=== PATIENT | male | born 1960 | race Caucasian/White ===

== ENCOUNTER 2020-05-31 14:43 | Inpatient (IN) ==
[2020-05-31] MEDS ORDERED: SODIUM CHLORIDE 0.9% 1,000 ML IV STA (16:15)
[2020-05-31 17:40] LABS: Hematocrit 34.7 VOL% (42.0-52.0); Hemoglobin 11.7 GM/DL (14.0-18.0); Immature Granulocytes % 0.6 %; Immature Granulocytes Absolute 0.03 #; Lymphocytes # 0.4 10*3/uL (1.4-4.0); Lymphocytes % 8.9 % (21.2-54.2); Mean Corpuscular HGB Conc 33.7 GM/DL (32-36); Mean Corpuscular Volume 93.8 FL (87-102); Mean Platelet Volume 9.9 FL (9.6-12.0); Monocytes % 5.1 % (1.7-12.7); Neutrophils % 85.4 % (38.7-73.9); Platelet Count 150 T/CUMM (130-400); Red Cell Distribution Width 13.9 % (9.3-17.3); White Blood Count 4.7 T/CUMM (4-12)
[2020-05-31 17:55] LABS: Lymphocytes 8 % (20-55); Platelet Estimate Adequate; Segmented Neutrophils 88 % (50-85); Total Cells Counted 100
[2020-05-31 18:02] LABS: Albumin 3.1 G/DL (3.4-5.0); Bilirubin,Total 0.7 MG/DL (0.2-1.0); Calcium 7.8 MG/DL (8.5-10.1); Ferritin 299.5 ng/ml (26-388); Osmolality,Calculated 283.5 MOS/KG (273-304)
[2020-05-31] MEDS ORDERED: SODIUM CHLORIDE 0.9% 1,000 ML IV ONE (18:23)
[2020-05-31] MEDS ORDERED: GLUCAGON 1 MG VIAL IM PRN ×2 (18:25)
[2020-05-31] MEDS ORDERED: NICOTINE 21 MG/24 HR PATCH TRANSDERM PRN (18:25)
[2020-05-31] MEDS ORDERED: ONDANSETRON 4 MG/2 ML VIAL IV PRN (18:25)
[2020-05-31] MEDS ORDERED: ALUMINUM/MAGNES/SIMETH MAX STR 30 ML UDCUP PO PRN (18:25)
[2020-05-31] MEDS ORDERED: CALCIUM CARBONATE CHEW 500 MG TABLET PO PRN (18:25)
[2020-05-31] MEDS ORDERED: SIMETHICONE CHEW 125 MG TABLET PO PRN (18:25)
[2020-05-31] MEDS ORDERED: DEXTROSE 50% 25 GM/50 ML VIAL IV PRN ×2 (18:25)
[2020-05-31] MEDS ORDERED: hydrALAZINE 20 MG/1 ML VIAL IV PRN (18:25)
[2020-05-31] MEDS ORDERED: BISACODYL 5 MG TABLET PO PRN (18:25)
[2020-05-31] MEDS ORDERED: AZITHROMYCIN INJ 500 MG in SODIUM CHLORIDE 0.9% 250 ML IV STA (18:29)
[2020-05-31] MEDS ORDERED: ALBUTEROL INHALER 18 GM INH PRN (18:45)
[2020-05-31] MEDS ORDERED: ENOXAPARIN 40 MG/0.4 ML SYRINGE SUBCUT SCH (19:00)
[2020-05-31] MEDS: ALBUTEROL INHALER 18 GM INH SCH ×2 (22:24→23:38)
[2020-05-31] MEDS: INSULIN LISPRO 100 UNIT/ML SUBCUT SCH (22:24)
[2020-05-31] MEDS: cefTRIAXone 1,000 MG in SYRINGE 1 EACH IV SCH (22:42)
[2020-05-31] MEDS: carvediloL 3.125 MG TABLET PO SCH (22:43)
[2020-05-31] MEDS: ACETAMINOPHEN 325 MG TABLET PO PRN (22:43)
[2020-05-31] MEDS: SIMVASTATIN 40 MG TABLET PO SCH (22:43)
[2020-05-31] MEDS: ZALEPLON 5 MG CAPSULE PO PRN (22:43)
[2020-05-31] MEDS: TICAGRELOR 90 MG TABLET PO SCH (22:43)
[2020-05-31] MEDS: SODIUM CHLORIDE 0.9% 1,000 ML IV SCH (22:46)
[2020-06-01 04:51] LABS: Hematocrit 34.9 VOL% (42.0-52.0); Hemoglobin 11.4 GM/DL (14.0-18.0); Immature Granulocytes % 0.4 %; Immature Granulocytes Absolute 0.02 #; Lymphocytes # 0.7 10*3/uL (1.4-4.0); Lymphocytes % 13.4 % (21.2-54.2); Mean Corpuscular HGB Conc 32.7 GM/DL (32-36); Mean Corpuscular Volume 95.9 FL (87-102); Mean Platelet Volume 9.6 FL (9.6-12.0); Monocytes % 6.2 % (1.7-12.7); Platelet Count 157 T/CUMM (130-400); Red Blood Count 3.64 MC/CUMM (3.8-5.5); Red Cell Distribution Width 13.8 % (9.3-17.3)
[2020-06-01] MEDS: ALBUTEROL INHALER 18 GM INH SCH ×8 (05:02→22:59)
[2020-06-01 05:11] LABS: Calcium 7.7 MG/DL (8.5-10.1); Osmolality,Calculated 283.4 MOS/KG (273-304)
[2020-06-01 05:13] LABS: Band Neutrophils 1 % (0-10); Hypochromasia Slight; Lymphocytes 8 % (20-55); Metamyelocytes 1 %; Segmented Neutrophils 85 % (50-85); Total Cells Counted 100
[2020-06-01 05:14] LABS: Microcytosis Slight; Ovalocytes Slight; Platelet Estimate Adequate
[2020-06-01] MEDS: INSULIN LISPRO 100 UNIT/ML SUBCUT SCH (09:15)
[2020-06-01] MEDS: ENOXAPARIN 150 MG/ML SYRINGE SUBCUT SCH ×2 (10:34→20:04)
[2020-06-01] MEDS: POTASSIUM CITRATE 10 MEQ TABLET PO SCH ×2 (10:35→20:05)
[2020-06-01] MEDS: ASPIRIN EC 81 MG TABLET PO SCH (10:35)
[2020-06-01] MEDS: TICAGRELOR 90 MG TABLET PO SCH ×2 (10:35→20:05)
[2020-06-01] MEDS: carvediloL 3.125 MG TABLET PO SCH ×2 (10:35→20:05)
[2020-06-01] MEDS: LORATADINE 10 MG TABLET PO SCH (10:36)
[2020-06-01] MEDS: amLODIPine 10 MG TABLET PO SCH (10:36)
[2020-06-01] MEDS: PANTOPRAZOLE 40 MG TABLET PO SCH (10:36)
[2020-06-01] MEDS: AZITHROMYCIN 250 MG TABLET PO SCH (10:36)
[2020-06-01] MEDS ORDERED: SODIUM CHLORIDE 0.9% 1,000 ML IV PRN (13:27)
[2020-06-01] MEDS ORDERED: REMDESIVIR 200 MG in SODIUM CHLORIDE 0.9% 210 ML IV ONE (14:00)
[2020-06-01] MEDS: cefTRIAXone 1,000 MG in SYRINGE 1 EACH IV SCH (17:41)
[2020-06-01] MEDS: ACETAMINOPHEN 325 MG TABLET PO PRN (20:05)
[2020-06-01] MEDS: ZALEPLON 5 MG CAPSULE PO PRN (20:05)
[2020-06-01] MEDS: SIMVASTATIN 40 MG TABLET PO SCH (20:05)
[2020-06-01] MEDS: SODIUM CHLORIDE 0.9% 1,000 ML IV SCH (20:14)
[2020-06-01] MEDS: ASCORBIC ACID 500 MG TABLET PO SCH (20:15)
[2020-06-02] MEDS ORDERED: busPIRone 5 MG TABLET PO ONE (01:48)
[2020-06-02] MEDS: ALBUTEROL INHALER 18 GM INH SCH ×5 (02:16→18:07)
[2020-06-02 05:57] LABS: Hematocrit 33.2 VOL% (42.0-52.0); Hemoglobin 11.2 GM/DL (14.0-18.0); Immature Granulocytes % 0.8 %; Immature Granulocytes Absolute 0.05 #; Lymphocytes # 0.6 10*3/uL (1.4-4.0); Lymphocytes % 9.5 % (21.2-54.2); Mean Corpuscular HGB Conc 33.7 GM/DL (32-36); Mean Platelet Volume 9.3 FL (9.6-12.0); Monocytes % 5.2 % (1.7-12.7); Neutrophils % 84.5 % (38.7-73.9); Platelet Count 198 T/CUMM (130-400); Red Blood Count 3.57 MC/CUMM (3.8-5.5); Red Cell Distribution Width 13.4 % (9.3-17.3); White Blood Count 6.2 T/CUMM (4-12)
[2020-06-02 06:20] LABS: Albumin 2.7 G/DL (3.4-5.0); Bilirubin,Total 1.4 MG/DL (0.2-1.0); Calcium 7.6 MG/DL (8.5-10.1); Ferritin 435.5 ng/ml (26-388); Osmolality,Calculated 278.5 MOS/KG (273-304); Total Protein 6.6 G/DL (6.4-8.3)
[2020-06-02 06:47] LABS: Band Neutrophils 2 % (0-10); Lymphocytes 10 % (20-55); Segmented Neutrophils 83 % (50-85); Total Cells Counted 100
[2020-06-02 06:48] LABS: Hypochromasia 1+; Microcytosis 1+; Ovalocytes Slight; Platelet Estimate Adequate
[2020-06-02 08:57] LABS: Sedimentation Rate-Westergren 90 MM/HR (0-20)
[2020-06-02] MEDS: REMDESIVIR 100 MG in SODIUM CHLORIDE 0.9% 100 ML IV SCH (09:45)
[2020-06-02] MEDS: ENOXAPARIN 150 MG/ML SYRINGE SUBCUT SCH ×2 (09:46→20:18)
[2020-06-02] MEDS: POTASSIUM CITRATE 10 MEQ TABLET PO SCH ×2 (09:47→20:18)
[2020-06-02] MEDS: LORATADINE 10 MG TABLET PO SCH (09:47)
[2020-06-02] MEDS: carvediloL 3.125 MG TABLET PO SCH ×2 (09:47→20:19)
[2020-06-02] MEDS: amLODIPine 10 MG TABLET PO SCH (09:47)
[2020-06-02] MEDS: CHOLECALCIFEROL 1,000 UNIT TABLET PO SCH (09:47)
[2020-06-02] MEDS: ZINC SULFATE 220 MG CAPSULE PO SCH (09:47)
[2020-06-02] MEDS: PANTOPRAZOLE 40 MG TABLET PO SCH (09:47)
[2020-06-02] MEDS: TICAGRELOR 90 MG TABLET PO SCH ×2 (09:47→20:19)
[2020-06-02] MEDS: ASPIRIN EC 81 MG TABLET PO SCH (09:47)
[2020-06-02] MEDS: AZITHROMYCIN 250 MG TABLET PO SCH (09:48)
[2020-06-02] MEDS: ASCORBIC ACID 500 MG TABLET PO SCH ×2 (09:48→20:18)
[2020-06-02] MEDS: busPIRone 5 MG TABLET PO SCH ×2 (15:48→20:19)
[2020-06-02] MEDS: ACETAMINOPHEN 325 MG TABLET PO PRN ×2 (15:48→20:19)
[2020-06-02] MEDS: cefTRIAXone 1,000 MG in SYRINGE 1 EACH IV SCH (18:07)
[2020-06-02] MEDS: guaiFENesin/DM ER 600-30 MG TABLET PO PRN (20:18)
[2020-06-02] MEDS: DOXAZOSIN 4 MG TABLET PO SCH (20:19)
[2020-06-02] MEDS: ZALEPLON 5 MG CAPSULE PO PRN (20:19)
[2020-06-02] MEDS: diphenhydrAMINE CAP 25 MG CAPSULE PO PRN (20:19)
[2020-06-03] MEDS: ALBUTEROL INHALER 18 GM INH SCH ×6 (00:30→20:15)
[2020-06-03] MEDS: diphenhydrAMINE CAP 25 MG CAPSULE PO PRN (02:25)
[2020-06-03 06:54] LABS: Basophils % 0.2 % (0.0-0.8); Eosinophils # 0.1 10*3/uL (0.0-0.87); Eosinophils % 0.8 % (0.00-10.9); Hematocrit 32.7 VOL% (42.0-52.0); Hemoglobin 11.2 GM/DL (14.0-18.0); Immature Granulocytes % 1.2 %; Immature Granulocytes Absolute 0.07 #; Lymphocytes # 0.5 10*3/uL (1.4-4.0); Lymphocytes % 8.7 % (21.2-54.2); Mean Corpuscular HGB Conc 34.3 GM/DL (32-36); Mean Corpuscular Volume 93.7 FL (87-102); Mean Platelet Volume 9.7 FL (9.6-12.0); Monocytes % 6.1 % (1.7-12.7); Platelet Count 214 T/CUMM (130-400); Red Blood Count 3.49 MC/CUMM (3.8-5.5); Red Cell Distribution Width 13.4 % (9.3-17.3); White Blood Count 5.9 T/CUMM (4-12)
[2020-06-03 07:06] LABS: Albumin 2.4 G/DL (3.4-5.0); Bilirubin,Total 1.2 MG/DL (0.2-1.0); Calcium 7.5 MG/DL (8.5-10.1); Ferritin 370.5 ng/ml (26-388); Osmolality,Calculated 284.3 MOS/KG (273-304); Total Protein 6.3 G/DL (6.4-8.3)
[2020-06-03 07:07] LABS: Risk Ratio 1.74; VLDL CHOLESTEROL 17.2 MG/DL
[2020-06-03 08:07] LABS: Sedimentation Rate-Westergren 98 MM/HR (0-20)
[2020-06-03 08:16] LABS: Anisocytosis 1+; Band Neutrophils 5 % (0-10); Burr Cells Few; Eosinophils 1 % (0-10); Lymphocytes 6 % (20-55); Macrocytosis Slight; Myelocytes 1 %; Ovalocytes Few; Platelet Estimate Normal; Segmented Neutrophils 77 % (50-85); Total Cells Counted 100
[2020-06-03] MEDS: carvediloL 3.125 MG TABLET PO SCH ×2 (09:40→20:17)
[2020-06-03] MEDS: LORATADINE 10 MG TABLET PO SCH (09:40)
[2020-06-03] MEDS: ASPIRIN EC 81 MG TABLET PO SCH (09:40)
[2020-06-03] MEDS: OMEGA 3 ACID ETHYL ESTERS 1 GM CAPSULE PO SCH (09:40)
[2020-06-03] MEDS: AZITHROMYCIN 250 MG TABLET PO SCH (09:40)
[2020-06-03] MEDS: CHOLECALCIFEROL 1,000 UNIT TABLET PO SCH (09:40)
[2020-06-03] MEDS: ZINC SULFATE 220 MG CAPSULE PO SCH (09:40)
[2020-06-03] MEDS: ASCORBIC ACID 500 MG TABLET PO SCH ×2 (09:40→20:17)
[2020-06-03] MEDS: DOXAZOSIN 4 MG TABLET PO SCH ×2 (09:40→20:17)
[2020-06-03] MEDS: ENOXAPARIN 150 MG/ML SYRINGE SUBCUT SCH (09:40)
[2020-06-03] MEDS: POTASSIUM CITRATE 10 MEQ TABLET PO SCH ×2 (09:40→20:16)
[2020-06-03] MEDS: TICAGRELOR 90 MG TABLET PO SCH ×2 (09:40→20:17)
[2020-06-03] MEDS: busPIRone 5 MG TABLET PO SCH ×3 (09:40→20:17)
[2020-06-03] MEDS: amLODIPine 10 MG TABLET PO SCH (09:40)
[2020-06-03] MEDS: PANTOPRAZOLE 40 MG TABLET PO SCH (09:40)
[2020-06-03] MEDS: REMDESIVIR 100 MG in SODIUM CHLORIDE 0.9% 100 ML IV SCH (10:22)
[2020-06-03] MEDS: cefTRIAXone 1,000 MG in SYRINGE 1 EACH IV SCH (18:06)
[2020-06-03] MEDS: ZALEPLON 5 MG CAPSULE PO PRN (20:17)
[2020-06-03] MEDS: guaiFENesin/DM ER 600-30 MG TABLET PO PRN (20:17)
[2020-06-04] MEDS: ACETAMINOPHEN 325 MG TABLET PO PRN ×2 (01:40→17:35)
[2020-06-04] MEDS: ALBUTEROL INHALER 18 GM INH SCH ×7 (01:40→22:00)
[2020-06-04] MEDS: ENOXAPARIN 150 MG/ML SYRINGE SUBCUT SCH ×2 (02:00→14:30)
[2020-06-04 05:23] LABS: Basophils % 0.1 % (0.0-0.8); Eosinophils # 0.1 10*3/uL (0.0-0.87); Eosinophils % 1.4 % (0.00-10.9); Hematocrit 32.6 VOL% (42.0-52.0); Hemoglobin 10.8 GM/DL (14.0-18.0); Immature Granulocytes % 1.2 %; Lymphocytes # 0.5 10*3/uL (1.4-4.0); Lymphocytes % 5.9 % (21.2-54.2); Mean Corpuscular HGB Conc 33.1 GM/DL (32-36); Mean Corpuscular Volume 94.2 FL (87-102); Mean Platelet Volume 9.2 FL (9.6-12.0); Monocytes % 4.2 % (1.7-12.7); Neutrophils % 87.2 % (38.7-73.9); Platelet Count 230 T/CUMM (130-400); Red Blood Count 3.46 MC/CUMM (3.8-5.5); Red Cell Distribution Width 13.6 % (9.3-17.3); White Blood Count 8.6 T/CUMM (4-12)
[2020-06-04 06:06] LABS: Albumin 2.5 G/DL (3.4-5.0); Bilirubin,Total 0.9 MG/DL (0.2-1.0); Calcium 7.8 MG/DL (8.5-10.1); Ferritin 353.4 ng/ml (26-388); Osmolality,Calculated 284.1 MOS/KG (273-304); Total Protein 6.7 G/DL (6.4-8.3)
[2020-06-04 06:35] LABS: Sedimentation Rate-Westergren 110 MM/HR (0-20)
[2020-06-04] MEDS: ASPIRIN EC 81 MG TABLET PO SCH (10:20)
[2020-06-04] MEDS: ASCORBIC ACID 500 MG TABLET PO SCH ×2 (10:20→21:39)
[2020-06-04] MEDS: DOXAZOSIN 4 MG TABLET PO SCH ×2 (10:20→21:39)
[2020-06-04] MEDS: OMEGA 3 ACID ETHYL ESTERS 1 GM CAPSULE PO SCH (10:20)
[2020-06-04] MEDS: PANTOPRAZOLE 40 MG TABLET PO SCH (10:20)
[2020-06-04] MEDS: amLODIPine 10 MG TABLET PO SCH (10:20)
[2020-06-04] MEDS: LORATADINE 10 MG TABLET PO SCH (10:20)
[2020-06-04] MEDS: ZINC SULFATE 220 MG CAPSULE PO SCH (10:20)
[2020-06-04] MEDS: POTASSIUM CITRATE 10 MEQ TABLET PO SCH ×2 (10:20→21:39)
[2020-06-04] MEDS: busPIRone 5 MG TABLET PO SCH ×2 (10:20→21:40)
[2020-06-04] MEDS: TICAGRELOR 90 MG TABLET PO SCH ×2 (10:20→21:39)
[2020-06-04] MEDS: carvediloL 3.125 MG TABLET PO SCH ×2 (10:20→21:39)
[2020-06-04] MEDS: AZITHROMYCIN 250 MG TABLET PO SCH (10:20)
[2020-06-04] MEDS: CHOLECALCIFEROL 1,000 UNIT TABLET PO SCH (10:20)
[2020-06-04] MEDS: REMDESIVIR 100 MG in SODIUM CHLORIDE 0.9% 100 ML IV SCH (10:20)
[2020-06-04] MEDS: cefTRIAXone 1,000 MG in SYRINGE 1 EACH IV SCH (17:35)
[2020-06-04] MEDS: ZALEPLON 5 MG CAPSULE PO PRN (21:40)
[2020-06-04] MEDS: guaiFENesin/DM ER 600-30 MG TABLET PO PRN (21:40)
[2020-06-05] MEDS: ACETAMINOPHEN 325 MG TABLET PO PRN ×2 (01:00→20:28)
[2020-06-05] MEDS: ENOXAPARIN 150 MG/ML SYRINGE SUBCUT SCH ×2 (01:00→15:00)
[2020-06-05] MEDS: ALBUTEROL INHALER 18 GM INH SCH ×5 (02:10→20:27)
[2020-06-05 06:37] LABS: Basophils % 0.1 % (0.0-0.8); Eosinophils # 0.1 10*3/uL (0.0-0.87); Eosinophils % 1.6 % (0.00-10.9); Hematocrit 32.9 VOL% (42.0-52.0); Hemoglobin 10.9 GM/DL (14.0-18.0); Immature Granulocytes Absolute 0.09 #; Lymphocytes # 0.4 10*3/uL (1.4-4.0); Lymphocytes % 4.6 % (21.2-54.2); Mean Corpuscular HGB Conc 33.1 GM/DL (32-36); Mean Corpuscular Volume 94.8 FL (87-102); Mean Platelet Volume 9.6 FL (9.6-12.0); Monocytes % 2.6 % (1.7-12.7); Neutrophils % 90.1 % (38.7-73.9); Platelet Count 264 T/CUMM (130-400); Red Blood Count 3.47 MC/CUMM (3.8-5.5); Red Cell Distribution Width 13.5 % (9.3-17.3)
[2020-06-05 07:09] LABS: Albumin 2.3 G/DL (3.4-5.0); Bilirubin,Total 1.6 MG/DL (0.2-1.0); Calcium 7.9 MG/DL (8.5-10.1); Ferritin 385.7 ng/ml (26-388); Osmolality,Calculated 281.4 MOS/KG (273-304); Total Protein 6.6 G/DL (6.4-8.3)
[2020-06-05 08:07] LABS: Sedimentation Rate-Westergren 107 MM/HR (0-20)
[2020-06-05 09:15] LABS: Band Neutrophils 9 % (0-10); Eosinophils 4 % (0-10); Lymphocytes 2 % (20-55); Platelet Estimate Normal; Segmented Neutrophils 83 % (50-85); Total Cells Counted 100
[2020-06-05 09:16] LABS: Burr Cells Few; Tear Drop Cells Few
[2020-06-05] MEDS: busPIRone 5 MG TABLET PO SCH ×2 (09:40→20:26)
[2020-06-05] MEDS: PANTOPRAZOLE 40 MG TABLET PO SCH (09:40)
[2020-06-05] MEDS: TICAGRELOR 90 MG TABLET PO SCH ×2 (09:40→20:27)
[2020-06-05] MEDS: ZINC SULFATE 220 MG CAPSULE PO SCH (09:40)
[2020-06-05] MEDS: OMEGA 3 ACID ETHYL ESTERS 1 GM CAPSULE PO SCH (09:40)
[2020-06-05] MEDS: ASPIRIN EC 81 MG TABLET PO SCH (09:40)
[2020-06-05] MEDS: carvediloL 3.125 MG TABLET PO SCH ×2 (09:40→20:27)
[2020-06-05] MEDS: POTASSIUM CITRATE 10 MEQ TABLET PO SCH ×2 (09:40→20:27)
[2020-06-05] MEDS: ASCORBIC ACID 500 MG TABLET PO SCH ×2 (09:40→20:27)
[2020-06-05] MEDS: amLODIPine 10 MG TABLET PO SCH (09:40)
[2020-06-05] MEDS: DOXAZOSIN 4 MG TABLET PO SCH ×2 (09:40→20:26)
[2020-06-05] MEDS: LORATADINE 10 MG TABLET PO SCH (09:40)
[2020-06-05] MEDS: CHOLECALCIFEROL 1,000 UNIT TABLET PO SCH (09:40)
[2020-06-05] MEDS: REMDESIVIR 100 MG in SODIUM CHLORIDE 0.9% 100 ML IV SCH (10:28)
[2020-06-05] MEDS: cefTRIAXone 1,000 MG in SYRINGE 1 EACH IV SCH (17:44)
[2020-06-05] MEDS: ZALEPLON 5 MG CAPSULE PO PRN (20:26)
[2020-06-06] MEDS: ALBUTEROL INHALER 18 GM INH SCH ×7 (00:03→23:52)
[2020-06-06] MEDS: ENOXAPARIN 150 MG/ML SYRINGE SUBCUT SCH ×2 (02:50→14:02)
[2020-06-06] MEDS ORDERED: SODIUM BICARBONATE 50 MEQ/50 ML SYRINGE IV ONE (05:31)
[2020-06-06] MEDS ORDERED: EPINEPHrine 1 MG/10 ML SYRINGE ONE (05:31)
[2020-06-06] MEDS ORDERED: ETOMIDATE 20 MG/10 ML VIAL IV ONE ×2 (05:46→07:08)
[2020-06-06] MEDS ORDERED: ROCURONIUM 100 MG/10 ML VIAL IV ONE ×2 (05:46→07:08)
[2020-06-06] MEDS ORDERED: CALCIUM CHLORIDE 1,000 MG/10 ML SYRINGE IV ONE (05:55)
[2020-06-06] MEDS ORDERED: SODIUM BICARBONATE 50 MEQ/50 ML VIAL IV ONE (05:56)
[2020-06-06 06:02] LABS: Basophils % 0.1 % (0.0-0.8); Eosinophils # 0.1 10*3/uL (0.0-0.87); Hematocrit 30.1 VOL% (42.0-52.0); Hemoglobin 9.8 GM/DL (14.0-18.0); Immature Granulocytes % 1.8 %; Immature Granulocytes Absolute 0.23 #; Lymphocytes # 1.3 10*3/uL (1.4-4.0); Lymphocytes % 9.7 % (21.2-54.2); Mean Corpuscular HGB Conc 32.6 GM/DL (32-36); Mean Corpuscular Volume 96.8 FL (87-102); Monocytes % 2.6 % (1.7-12.7); Neutrophils % 84.8 % (38.7-73.9); Platelet Count 317 T/CUMM (130-400); Red Blood Count 3.11 MC/CUMM (3.8-5.5); Red Cell Distribution Width 13.7 % (9.3-17.3); White Blood Count 12.9 T/CUMM (4-12)
[2020-06-06] MEDS ORDERED: FUROSEMIDE 100 MG/10 ML VIAL ONE (06:20)
[2020-06-06] MEDS ORDERED: MIDAZOLAM 10 MG/2 ML VIAL ONE (06:33)
[2020-06-06 06:35] LABS: Albumin 2.1 G/DL (3.4-5.0); Bilirubin,Total 0.6 MG/DL (0.2-1.0); Calcium 7.7 MG/DL (8.5-10.1); Ferritin 449.6 ng/ml (26-388); Osmolality,Calculated 292.4 MOS/KG (273-304); Total Protein 6.2 G/DL (6.4-8.3)
[2020-06-06] MEDS ORDERED: DEXMEDETOMIDINE 200 MCG in SODIUM CHLORIDE 0.9% 48 ML IV PRN (06:40)
[2020-06-06 06:59] LABS: ABG HCO3 23.6 MMOL/L (20-26); ABG PCO2 61.4 MM HG (35-48); ABG TCO2 25.5 MMOL/L (23-27)
[2020-06-06 07:00] LABS: ABG Base Excess -4.8 MMOL/L (-2.5-2.5); ABG Oxygen Saturation 44.3 % (95-100); ABG PH 7.203 (7.35-7.45)
[2020-06-06 07:01] LABS: ABG PO2 36.9 MM HG (80-95)
[2020-06-06] MEDS ORDERED: FUROSEMIDE 40 MG/4 ML VIAL IV ONE (07:08)
[2020-06-06] MEDS ORDERED: MIDAZOLAM 2 MG/2 ML VIAL IV ONE (07:08)
[2020-06-06] MEDS ORDERED: LACTATED RINGERS 1,000 ML IV ONE (07:25)
[2020-06-06 07:51] LABS: ABG Base Excess 1.1 MMOL/L (-2.5-2.5); ABG HCO3 24.9 MMOL/L (20-26); ABG Oxygen Saturation 68.3 % (95-100); ABG PCO2 44.5 MM HG (35-48); ABG PH 7.381 (7.35-7.45); ABG TCO2 24.4 MMOL/L (23-27)
[2020-06-06 07:53] LABS: ABG PO2 40.1 MM HG (80-95)
[2020-06-06 08:17] LABS: Amorphous Crystals,Urine Few /HPF (Few); Bacteria,Urine Occasional /HPF (Few); Bilirubin,Urine Negative (Negative); Blood, Urine Small mg/dL (Negative); Glucose,Urine (UA) 50 mg/dL (Negative); Hyaline Casts,Urine 3 /LPF (0-3); Ketones,Urine Negative (Negative); Mucus,Urine Occasional /LPF (Occasional); Nitrite,Urine Negative (Negative); Protein,Urine 30 MG/DL; RBC,Urine 8 /HPF (0-4); Squamous Epithelial Cell,Urine Occasional /HPF (0-10); Urine Appearance Slightly Hazy (Clear); Urine Color Yellow (Yellow); Urine Specific Gravity 1.011 (1.001-1.035); Urine Urobilinogen < 2.0 EU/DL (0.2-1.0)
[2020-06-06] MEDS: ROCURONIUM 500 MG in SODIUM CHLORIDE 0.9% 500 ML IV PRN ×3 (08:30→23:53)
[2020-06-06] MEDS: MIDAZOLAM 100 MG in SODIUM CHLORIDE 0.9% 80 ML IV PRN ×2 (08:30→22:30)
[2020-06-06] MEDS: fentaNYL INJ 1,250 MCG in SODIUM CHLORIDE 0.9% 225 ML IV PRN ×4 (08:30→23:52)
[2020-06-06 09:22] LABS: Sedimentation Rate-Westergren 110 MM/HR (0-20)
[2020-06-06] MEDS: LACTATED RINGERS 1,000 ML IV SCH ×3 (09:31→17:32)
[2020-06-06] MEDS: POTASSIUM CITRATE 10 MEQ TABLET PO SCH ×2 (10:13→20:54)
[2020-06-06] MEDS: busPIRone 5 MG TABLET PO SCH ×2 (10:14→20:54)
[2020-06-06] MEDS: carvediloL 3.125 MG TABLET PO SCH ×2 (10:14→20:56)
[2020-06-06] MEDS: TICAGRELOR 90 MG TABLET PO SCH ×2 (10:14→20:54)
[2020-06-06] MEDS: OMEGA 3 ACID ETHYL ESTERS 1 GM CAPSULE PO SCH (10:14)
[2020-06-06] MEDS: ACETAMINOPHEN 325 MG TABLET PO PRN ×2 (10:15→14:03)
[2020-06-06] MEDS: ASPIRIN EC 81 MG TABLET PO SCH (10:16)
[2020-06-06] MEDS: CHOLECALCIFEROL 1,000 UNIT TABLET PO SCH (10:16)
[2020-06-06] MEDS: amLODIPine 10 MG TABLET PO SCH (10:17)
[2020-06-06] MEDS: DOXAZOSIN 4 MG TABLET PO SCH ×2 (10:17→20:56)
[2020-06-06] MEDS: ASCORBIC ACID 500 MG TABLET PO SCH ×2 (10:17→20:54)
[2020-06-06] MEDS: ZINC SULFATE 220 MG CAPSULE PO SCH (10:17)
[2020-06-06] MEDS: LORATADINE 10 MG TABLET PO SCH (10:17)
[2020-06-06] MEDS: PANTOPRAZOLE 40 MG VIAL IV SCH (10:18)
[2020-06-06] MEDS: PANTOPRAZOLE 40 MG TABLET PO SCH (10:56)
[2020-06-06 11:21] LABS: ABG Base Excess 2.3 MMOL/L (-2.5-2.5); ABG HCO3 26.1 MMOL/L (20-26); ABG Oxygen Saturation 79.3 % (95-100); ABG PCO2 59.1 MM HG (35-48); ABG PH 7.313 (7.35-7.45); ABG PO2 51.9 MM HG (80-95); ABG TCO2 27.1 MMOL/L (23-27)
[2020-06-06] MEDS: NOREPINEPHRINE 8 MG in SODIUM CHLORIDE 0.9% 234 ML IV PRN ×2 (15:45→22:35)
[2020-06-06] MEDS ORDERED: LACTATED RINGERS 500 ML IV ONE (15:45)
[2020-06-06] MEDS: INSULIN LISPRO 100 UNIT/ML SUBCUT SCH (17:35)
[2020-06-06] MEDS: cefTRIAXone 1,000 MG in SYRINGE 1 EACH IV SCH (18:39)
[2020-06-06] MEDS: INSULIN GLARGINE 100 UNIT/ML SUBCUT SCH (20:55)
[2020-06-06] MEDS ORDERED: DEXTROSE IV SCH (21:00)
[2020-06-07] MEDS: INSULIN LISPRO 100 UNIT/ML SUBCUT SCH ×4 (00:30→17:48)
[2020-06-07] MEDS: ENOXAPARIN 150 MG/ML SYRINGE SUBCUT SCH ×2 (02:11→09:36)
[2020-06-07] MEDS: ALBUTEROL INHALER 18 GM INH SCH ×6 (02:12→23:45)
[2020-06-07] MEDS: ACETAMINOPHEN 325 MG TABLET PO PRN ×3 (02:14→18:36)
[2020-06-07] MEDS: LACTATED RINGERS 1,000 ML IV SCH ×2 (02:45→14:35)
[2020-06-07] MEDS: fentaNYL INJ 1,250 MCG in SODIUM CHLORIDE 0.9% 225 ML IV PRN (04:20)
[2020-06-07] MEDS: fentaNYL INJ 2,500 MCG in SODIUM CHLORIDE 0.9% 450 ML IV PRN ×3 (04:23→21:52)
[2020-06-07 05:11] LABS: ABG Base Excess 1.5 MMOL/L (-2.5-2.5); ABG HCO3 28.6 MMOL/L (20-26); ABG Oxygen Saturation 97.9 % (95-100); ABG PCO2 59.4 MM HG (35-48); ABG PH 7.301 (7.35-7.45); ABG PO2 123.1 MM HG (80-95); ABG TCO2 30.5 MMOL/L (23-27)
[2020-06-07 05:13] LABS: Basophils % 0.2 % (0.0-0.8); Eosinophils # 0.2 10*3/uL (0.0-0.87); Eosinophils % 3.7 % (0.00-10.9); Hematocrit 26.9 VOL% (42.0-52.0); Hemoglobin 8.6 GM/DL (14.0-18.0); Immature Granulocytes % 1.1 %; Immature Granulocytes Absolute 0.07 #; Lymphocytes # 0.3 10*3/uL (1.4-4.0); Lymphocytes % 5.1 % (21.2-54.2); Mean Corpuscular Volume 98.9 FL (87-102); Mean Platelet Volume 9.4 FL (9.6-12.0); Monocytes % 2.6 % (1.7-12.7); Neutrophils % 87.3 % (38.7-73.9); Platelet Count 285 T/CUMM (130-400); Red Blood Count 2.72 MC/CUMM (3.8-5.5); Red Cell Distribution Width 14.4 % (9.3-17.3); White Blood Count 6.4 T/CUMM (4-12)
[2020-06-07] MEDS: NOREPINEPHRINE 8 MG in SODIUM CHLORIDE 0.9% 234 ML IV PRN ×3 (05:20→19:27)
[2020-06-07 05:31] LABS: Albumin 1.8 G/DL (3.4-5.0); Bilirubin,Total 0.6 MG/DL (0.2-1.0); Calcium 7.4 MG/DL (8.5-10.1); Ferritin 407.8 ng/ml (26-388); Osmolality,Calculated 296.4 MOS/KG (273-304); Total Protein 5.8 G/DL (6.4-8.3)
[2020-06-07] MEDS: ROCURONIUM 500 MG in SODIUM CHLORIDE 0.9% 500 ML IV PRN ×3 (06:48→20:58)
[2020-06-07 08:07] LABS: Segmented Neutrophils 86 % (50-85); Total Cells Counted 100
[2020-06-07 08:08] LABS: Band Neutrophils 3 % (0-10); Eosinophils 3 % (0-10); Hypochromasia Slight; Lymphocytes 4 % (20-55); Ovalocytes Few; Platelet Estimate Normal
[2020-06-07] MEDS: TICAGRELOR 90 MG TABLET PO SCH ×2 (09:35→20:36)
[2020-06-07] MEDS: busPIRone 5 MG TABLET PO SCH ×2 (09:35→20:36)
[2020-06-07] MEDS: ASPIRIN CHEW 81 MG TABLET PO SCH (09:35)
[2020-06-07] MEDS: LORATADINE 10 MG TABLET PO SCH (09:35)
[2020-06-07] MEDS: DOXAZOSIN 4 MG TABLET PO SCH ×2 (09:35→20:39)
[2020-06-07] MEDS: OMEGA 3 ACID ETHYL ESTERS 1 GM CAPSULE PO SCH (09:36)
[2020-06-07] MEDS: INSULIN GLARGINE 100 UNIT/ML SUBCUT SCH ×2 (09:36→20:37)
[2020-06-07] MEDS: carvediloL 3.125 MG TABLET PO SCH ×2 (09:36→20:36)
[2020-06-07] MEDS: amLODIPine 10 MG TABLET PO SCH (09:36)
[2020-06-07] MEDS: CHOLECALCIFEROL 1,000 UNIT TABLET PO SCH (09:37)
[2020-06-07] MEDS: ZINC SULFATE 220 MG CAPSULE PO SCH (09:37)
[2020-06-07] MEDS: PANTOPRAZOLE 40 MG VIAL IV SCH (09:37)
[2020-06-07] MEDS: ASCORBIC ACID 500 MG TABLET PO SCH ×2 (09:37→20:36)
[2020-06-07] MEDS: POTASSIUM CITRATE 10 MEQ TABLET PO SCH ×2 (09:37→20:36)
[2020-06-07] MEDS: MIDAZOLAM 100 MG in SODIUM CHLORIDE 0.9% 80 ML IV PRN (13:50)
[2020-06-07] MEDS: cefTRIAXone 1,000 MG in SYRINGE 1 EACH IV SCH (17:42)
[2020-06-08] MEDS: INSULIN LISPRO 100 UNIT/ML SUBCUT SCH ×4 (00:26→18:28)
[2020-06-08] MEDS: LACTATED RINGERS 1,000 ML IV SCH (00:35)
[2020-06-08] MEDS: NOREPINEPHRINE 8 MG in SODIUM CHLORIDE 0.9% 234 ML IV PRN ×4 (02:10→23:12)
[2020-06-08] MEDS: ALBUTEROL INHALER 18 GM INH SCH ×6 (03:15→22:43)
[2020-06-08] MEDS: ROCURONIUM 500 MG in SODIUM CHLORIDE 0.9% 500 ML IV PRN ×3 (04:55→23:43)
[2020-06-08 05:19] LABS: Basophils % 0.2 % (0.0-0.8); Eosinophils # 0.2 10*3/uL (0.0-0.87); Eosinophils % 3.1 % (0.00-10.9); Hematocrit 27.5 VOL% (42.0-52.0); Hemoglobin 8.4 GM/DL (14.0-18.0); Immature Granulocytes % 0.5 %; Immature Granulocytes Absolute 0.03 #; Lymphocytes # 0.3 10*3/uL (1.4-4.0); Lymphocytes % 4.4 % (21.2-54.2); Mean Corpuscular HGB Conc 30.5 GM/DL (32-36); Mean Corpuscular Volume 102.2 FL (87-102); Mean Platelet Volume 9.7 FL (9.6-12.0); Monocytes % 4.1 % (1.7-12.7); Neutrophils % 87.7 % (38.7-73.9); Platelet Count 268 T/CUMM (130-400); Red Blood Count 2.69 MC/CUMM (3.8-5.5); Red Cell Distribution Width 14.5 % (9.3-17.3); White Blood Count 6.4 T/CUMM (4-12)
[2020-06-08 05:20] LABS: ABG Base Excess -2.2 MMOL/L (-2.5-2.5); ABG HCO3 25.2 MMOL/L (20-26); ABG Oxygen Saturation 98.5 % (95-100); ABG PCO2 56.8 MM HG (35-48); ABG PH 7.265 (7.35-7.45); ABG PO2 157.1 MM HG (80-95); ABG TCO2 26.9 MMOL/L (23-27)
[2020-06-08 05:58] LABS: Anisocytosis 1+; Band Neutrophils 22 % (0-10); Eosinophils 1 % (0-10); Lymphocytes 3 % (20-55); Ovalocytes Few; Platelet Estimate Normal; Segmented Neutrophils 69 % (50-85); Total Cells Counted 100
[2020-06-08 05:59] LABS: Macrocytosis Slight
[2020-06-08 06:01] LABS: Ferritin 324.4 ng/ml (26-388)
[2020-06-08] MEDS: fentaNYL INJ 2,500 MCG in SODIUM CHLORIDE 0.9% 450 ML IV PRN ×3 (06:14→23:12)
[2020-06-08] MEDS ORDERED: SODIUM POLYSTYRENE SULFATE 15 GM/60 ML BOTTLE PO ONE (06:19)
[2020-06-08] MEDS: MIDAZOLAM 100 MG in SODIUM CHLORIDE 0.9% 80 ML IV PRN ×2 (06:28→23:42)
[2020-06-08] MEDS ORDERED: NOREPINEPHRINE 4 MG/4 ML VIAL IV ONE (08:39)
[2020-06-08] MEDS ORDERED: EPINEPHrine 1 MG/ML VIAL ONE (08:41)
[2020-06-08] MEDS ORDERED: SODIUM BICARBONATE 50 MEQ/50 ML VIAL IV ONE (08:45)
[2020-06-08] MEDS ORDERED: CALCIUM GLUCONATE 1,000 MG/10 ML VIAL IV ONE (08:45)
[2020-06-08 09:00] LABS: ABG Base Excess -3.1 MMOL/L (-2.5-2.5); ABG HCO3 21.1 MMOL/L (20-26); ABG Oxygen Saturation 43.3 % (95-100); ABG PCO2 63.7 MM HG (35-48); ABG TCO2 24.5 MMOL/L (23-27)
[2020-06-08] MEDS ORDERED: CALCIUM CHLORIDE 1,000 MG/10 ML SYRINGE IV ONE (09:49)
[2020-06-08] MEDS: POTASSIUM CITRATE 10 MEQ TABLET PO SCH (10:28)
[2020-06-08] MEDS: ASPIRIN CHEW 81 MG TABLET PO SCH (11:25)
[2020-06-08] MEDS: busPIRone 5 MG TABLET PO SCH ×2 (11:26→20:07)
[2020-06-08] MEDS: TICAGRELOR 90 MG TABLET PO SCH ×2 (11:26→20:07)
[2020-06-08] MEDS: LORATADINE 10 MG TABLET PO SCH (11:27)
[2020-06-08] MEDS: INSULIN GLARGINE 100 UNIT/ML SUBCUT SCH ×2 (11:27→20:07)
[2020-06-08] MEDS: DOXAZOSIN 4 MG TABLET PO SCH ×2 (11:27→20:07)
[2020-06-08] MEDS: carvediloL 3.125 MG TABLET PO SCH ×2 (11:27→20:07)
[2020-06-08] MEDS: PANTOPRAZOLE 40 MG VIAL IV SCH (11:28)
[2020-06-08] MEDS: CHOLECALCIFEROL 1,000 UNIT TABLET PO SCH (11:28)
[2020-06-08] MEDS: ZINC SULFATE 220 MG CAPSULE PO SCH (11:28)
[2020-06-08] MEDS: amLODIPine 10 MG TABLET PO SCH (11:28)
[2020-06-08] MEDS: ENOXAPARIN 150 MG/ML SYRINGE SUBCUT SCH (11:28)
[2020-06-08] MEDS: ASCORBIC ACID 500 MG TABLET PO SCH ×2 (11:28→20:06)
[2020-06-08] MEDS: OMEGA 3 ACID ETHYL ESTERS 1 GM CAPSULE PO SCH (11:28)
[2020-06-08] MEDS: SODIUM BICARB INJ 100 MEQ in STERILE WATER INJ 1,000 ML IV SCH ×2 (12:03→22:39)
[2020-06-08 16:55] LABS: ABG Base Excess -1.8 MMOL/L (-2.5-2.5); ABG HCO3 22.9 MMOL/L (20-26); ABG Oxygen Saturation 98.8 % (95-100); ABG PCO2 50.3 MM HG (35-48); ABG PH 7.303 (7.35-7.45); ABG TCO2 23.1 MMOL/L (23-27)
[2020-06-08 17:24] LABS: Osmolality,Calculated 317.8 MOS/KG (273-304)
[2020-06-08] MEDS: cefTRIAXone 1,000 MG in SYRINGE 1 EACH IV SCH (18:27)
[2020-06-08] MEDS: FLUCONAZOLE INJ 100 MG in IV BAG 1 EACH IV SCH (18:27)
[2020-06-09] MEDS: INSULIN LISPRO 100 UNIT/ML SUBCUT SCH ×4 (00:12→17:35)
[2020-06-09] MEDS: ALBUTEROL INHALER 18 GM INH SCH ×5 (02:27→19:30)
[2020-06-09 04:50] LABS: Basophils % 0.1 % (0.0-0.8); Eosinophils # 0.2 10*3/uL (0.0-0.87); Eosinophils % 2.7 % (0.00-10.9); Hematocrit 27.6 VOL% (42.0-52.0); Hemoglobin 8.7 GM/DL (14.0-18.0); Immature Granulocytes % 0.7 %; Immature Granulocytes Absolute 0.06 #; Lymphocytes # 0.3 10*3/uL (1.4-4.0); Mean Corpuscular HGB Conc 31.5 GM/DL (32-36); Mean Corpuscular Volume 99.6 FL (87-102); Mean Platelet Volume 9.5 FL (9.6-12.0); Monocytes % 3.2 % (1.7-12.7); Neutrophils % 90.3 % (38.7-73.9); Platelet Count 314 T/CUMM (130-400); Red Blood Count 2.77 MC/CUMM (3.8-5.5); Red Cell Distribution Width 14.6 % (9.3-17.3); White Blood Count 8.9 T/CUMM (4-12)
[2020-06-09 04:59] LABS: ABG Base Excess -0.4 MMOL/L (-2.5-2.5); ABG Oxygen Saturation 97.7 % (95-100); ABG PCO2 52.3 MM HG (35-48); ABG PH 7.315 (7.35-7.45); ABG PO2 119.4 MM HG (80-95); ABG TCO2 27.6 MMOL/L (23-27)
[2020-06-09 05:18] LABS: Band Neutrophils 2 % (0-10); Eosinophils 2 % (0-10); Hypochromasia Slight; Lymphocytes 3 % (20-55); Platelet Estimate Normal; Segmented Neutrophils 91 % (50-85); Total Cells Counted 100
[2020-06-09 05:26] LABS: Calcium 6.9 MG/DL (8.5-10.1)
[2020-06-09] MEDS: ROCURONIUM 500 MG in SODIUM CHLORIDE 0.9% 500 ML IV PRN (05:55)
[2020-06-09] MEDS: ACETAMINOPHEN 325 MG TABLET PO PRN ×2 (06:53→16:07)
[2020-06-09] MEDS: NOREPINEPHRINE 8 MG in SODIUM CHLORIDE 0.9% 234 ML IV PRN ×2 (07:16→16:01)
[2020-06-09] MEDS: fentaNYL INJ 2,500 MCG in SODIUM CHLORIDE 0.9% 450 ML IV PRN ×2 (07:31→21:10)
[2020-06-09] MEDS: INSULIN GLARGINE 100 UNIT/ML SUBCUT SCH ×2 (08:16→20:20)
[2020-06-09] MEDS: CHOLECALCIFEROL 1,000 UNIT TABLET PO SCH (08:17)
[2020-06-09] MEDS: ASPIRIN CHEW 81 MG TABLET PO SCH (08:17)
[2020-06-09] MEDS: ASCORBIC ACID 500 MG TABLET PO SCH ×2 (08:17→20:20)
[2020-06-09] MEDS: ZINC SULFATE 220 MG CAPSULE PO SCH (08:18)
[2020-06-09] MEDS: OMEGA 3 ACID ETHYL ESTERS 1 GM CAPSULE PO SCH (08:18)
[2020-06-09] MEDS: TICAGRELOR 90 MG TABLET PO SCH ×2 (08:18→20:20)
[2020-06-09] MEDS: busPIRone 5 MG TABLET PO SCH ×2 (08:18→20:20)
[2020-06-09] MEDS: ENOXAPARIN 150 MG/ML SYRINGE SUBCUT SCH (08:19)
[2020-06-09] MEDS: LORATADINE 10 MG TABLET PO SCH (08:19)
[2020-06-09] MEDS: SODIUM BICARB INJ 100 MEQ in STERILE WATER INJ 1,000 ML IV SCH ×2 (08:22→19:22)
[2020-06-09] MEDS: PANTOPRAZOLE 40 MG VIAL IV SCH (08:24)
[2020-06-09] MEDS ORDERED: CALCIUM GLUCONATE 1,000 MG in SODIUM CHLORIDE 0.9% 100 ML IV ONE (09:00)
[2020-06-09] MEDS: ALBUMIN 25% 25 GM in PREMIX 1 EACH IV SCH ×2 (09:38→17:19)
[2020-06-09] MEDS: FUROSEMIDE 40 MG/4 ML VIAL IV SCH (10:27)
[2020-06-09] MEDS: MIDAZOLAM 100 MG in SODIUM CHLORIDE 0.9% 80 ML IV PRN (17:22)
[2020-06-09] MEDS: cefTRIAXone 1,000 MG in SYRINGE 1 EACH IV SCH (17:57)
[2020-06-09] MEDS: FLUCONAZOLE INJ 100 MG in IV BAG 1 EACH IV SCH (17:58)
[2020-06-10] MEDS: ROCURONIUM 500 MG in SODIUM CHLORIDE 0.9% 500 ML IV PRN ×4 (00:05→21:35)
[2020-06-10] MEDS: ACETAMINOPHEN 325 MG TABLET PO PRN ×3 (00:35→16:57)
[2020-06-10] MEDS: INSULIN LISPRO 100 UNIT/ML SUBCUT SCH ×5 (01:07→23:42)
[2020-06-10] MEDS: ALBUMIN 25% 25 GM in PREMIX 1 EACH IV SCH ×3 (02:00→16:52)
[2020-06-10] MEDS: MIDAZOLAM 100 MG in SODIUM CHLORIDE 0.9% 80 ML IV PRN ×3 (02:40→21:22)
[2020-06-10] MEDS: NOREPINEPHRINE 8 MG in SODIUM CHLORIDE 0.9% 234 ML IV PRN ×3 (04:30→19:21)
[2020-06-10 05:36] LABS: ABG Base Excess -1.5 MMOL/L (-2.5-2.5); ABG HCO3 22.9 MMOL/L (20-26); ABG Oxygen Saturation 80.1 % (95-100); ABG PCO2 54.7 MM HG (35-48); ABG PO2 51.3 MM HG (80-95); ABG TCO2 24.2 MMOL/L (23-27)
[2020-06-10 05:46] LABS: Basophils % 0.4 % (0.0-0.8); Eosinophils # 0.1 10*3/uL (0.0-0.87); Eosinophils % 1.4 % (0.00-10.9); Hematocrit 27.8 VOL% (42.0-52.0); Hemoglobin 8.6 GM/DL (14.0-18.0); Immature Granulocytes % 0.8 %; Immature Granulocytes Absolute 0.07 #; Lymphocytes # 0.3 10*3/uL (1.4-4.0); Mean Corpuscular HGB Conc 30.9 GM/DL (32-36); Mean Corpuscular Volume 102.6 FL (87-102); Mean Platelet Volume 9.3 FL (9.6-12.0); Monocytes % 2.6 % (1.7-12.7); NRBC # 0.02 10*3/uL; Neutrophils % 91.8 % (38.7-73.9); Platelet Count 306 T/CUMM (130-400); Red Blood Count 2.71 MC/CUMM (3.8-5.5); Red Cell Distribution Width 15.1 % (9.3-17.3); White Blood Count 8.4 T/CUMM (4-12)
[2020-06-10 06:04] LABS: Albumin 1.6 G/DL (3.4-5.0); Bilirubin,Total 0.8 MG/DL (0.2-1.0); Calcium 6.6 MG/DL (8.5-10.1); Osmolality,Calculated 316.7 MOS/KG (273-304); Total Protein 5.3 G/DL (6.4-8.3)
[2020-06-10] MEDS: ALBUTEROL INHALER 18 GM INH SCH ×7 (06:05→23:31)
[2020-06-10] MEDS: SODIUM BICARB INJ 100 MEQ in STERILE WATER INJ 1,000 ML IV SCH ×2 (06:07→16:00)
[2020-06-10 06:16] LABS: Band Neutrophils 11 % (0-10); Eosinophils 2 % (0-10); Lymphocytes 2 % (20-55); Metamyelocytes 1 %; Segmented Neutrophils 81 % (50-85); Total Cells Counted 100
[2020-06-10 06:17] LABS: Anisocytosis 1+; Hypochromasia Slight; Ovalocytes Few
[2020-06-10 06:18] LABS: Microcytosis 1+; Platelet Estimate Normal; Polychromasia Slight
[2020-06-10] MEDS: ASCORBIC ACID 500 MG TABLET PO SCH ×2 (08:39→20:05)
[2020-06-10] MEDS: CHOLECALCIFEROL 1,000 UNIT TABLET PO SCH (08:39)
[2020-06-10] MEDS: OMEGA 3 ACID ETHYL ESTERS 1 GM CAPSULE PO SCH (08:39)
[2020-06-10] MEDS: PANTOPRAZOLE 40 MG VIAL IV SCH (08:39)
[2020-06-10] MEDS: LORATADINE 10 MG TABLET PO SCH (08:39)
[2020-06-10] MEDS: ASPIRIN CHEW 81 MG TABLET PO SCH (08:39)
[2020-06-10] MEDS: busPIRone 5 MG TABLET PO SCH ×2 (08:39→20:05)
[2020-06-10] MEDS: TICAGRELOR 90 MG TABLET PO SCH ×2 (08:39→20:05)
[2020-06-10] MEDS: INSULIN GLARGINE 100 UNIT/ML SUBCUT SCH ×2 (08:39→11:54)
[2020-06-10] MEDS: ZINC SULFATE 220 MG CAPSULE PO SCH (08:39)
[2020-06-10] MEDS: ENOXAPARIN 150 MG/ML SYRINGE SUBCUT SCH (08:40)
[2020-06-10] MEDS: FUROSEMIDE 40 MG/4 ML VIAL IV SCH (08:42)
[2020-06-10] MEDS: fentaNYL INJ 2,500 MCG in SODIUM CHLORIDE 0.9% 450 ML IV PRN (11:12)
[2020-06-10 13:16] VITALS: BP 123/51
[2020-06-10] MEDS ORDERED: MICAFUNGIN 150 MG in SODIUM CHLORIDE 0.9% 100 ML IV SCH (16:30)
[2020-06-10] MEDS ORDERED: FUROSEMIDE INJ 200 MG in SODIUM CHLORIDE 0.9% 80 ML IV SCH (17:30)
[2020-06-10] MEDS: cefTRIAXone 1,000 MG in SYRINGE 1 EACH IV SCH (18:28)
[2020-06-10] MEDS ORDERED: DEXTROSE 50% 25 GM/50 ML VIAL IV ONE (23:34)
[2020-06-10] MEDS ORDERED: DEXTROSE 50% 25 GM/50 ML VIAL IV PRN (23:37)
[2020-06-11] MEDS: ALBUMIN 25% 25 GM in PREMIX 1 EACH IV SCH (00:08)
== END 2020-06-11 00:30 | disposition expired | DRG 207 ==
LOC: N.ED 14:43 → SUATTDRO 18:25 → N.EDINP 18:25 → N.2E 21:40 → N.CC 06-06 05:25
PROVIDERS: ADMIT Internal Medicine; ATTEND Internal Medicine